=== PATIENT | female | born 1960 | race Asian ===

== ENCOUNTER → 2018-07-24 | Outpatient (CLI) | payer BC | LOC: CIMAGING 14:05 | PROVIDERS: ATTEND Family Medicine | DX: Z12.31 Encounter for screening mammogram for malignant neoplasm of breast (principal) ==

== ENCOUNTER → 2018-08-01 | Outpatient (CLI) | payer BC | LOC: CIMAGING 08:06 | PROVIDERS: ATTEND Family Medicine | DX: E05.90 Thyrotoxicosis, unspecified without thyrotoxic crisis or storm (principal); E04.1 Nontoxic single thyroid nodule | CPT/HCPCS: 76536-PO ==

== ENCOUNTER → 2018-08-07 | Outpatient (CLI) | payer BC | LOC: FIMAGING 09:03 | PROVIDERS: ATTEND Family Medicine | DX: R94.6 Abnormal results of thyroid function studies (principal); E05.90 Thyrotoxicosis, unspecified without thyrotoxic crisis or storm | CPT/HCPCS: 78014; A9516 ==